=== PATIENT | female | born 1970 | race African-American/Black ===

== ENCOUNTER 2019-08-02 16:37 | Emergency (ER) | payer BC ==
[2019-08-02] MEDS ORDERED: Amlodipine 5 MG TAB ONE (17:03)
== END 2019-08-02 17:09 | disposition home or self-care (01) ==
LOC: BURERS 16:37
DX: I10 Essential (primary) hypertension (principal); Z79.899 Other long term (current) drug therapy
CPT/HCPCS: 99283